=== PATIENT | female | born 1960 | race Caucasian/White ===

== ENCOUNTER → 2016-11-04 | Outpatient (CLI) | payer BC ==
[2016-11-04 10:47] LABS: Appearance,Urine Clear (Clear); Bilirubin,Urine Negative (Negative); Glucose,Urine (UA) Negative (Negative); Ketones,Urine Negative (Negative); Leukocyte Esterase,Urine Negative (Negative); Nitrite,Urine Negative (Negative); Protein,Urine Negative (Negative); Specific Gravity,Urine 1.004 (1.001-1.035); UA Billing (MACRO vs. MICRO) CHEM; Urobilinogen,Urine <2.0 mg/dL (<2.0)
--- NOTE | 2016-11-04 11:51 | WWPN ---
DATE OF ADMISSION: 11/04/2016 CHIEF COMPLAINT: Urinary symptoms for about one month. HPI: This is a 56-year-old G4, P3-0-1-3 with an LMP of 2000 who is status post COREY and possible BSO years ago for benign reasons. The patient has been experiencing some urinary urgency, dysuria and pelvic pressure for about the last month. She states she was treated for a UTI on 08/04/2016 and took Macrobid. She states the symptoms did improve, but she never got the feeling that the symptoms were completely gone. A couple of weeks ago, the symptoms seem to get worse. This was noticed after intercourse. She states when she does have intercourse, she does tend to have urinary urgency and pressure. This sometimes does improve, but other times does not improve. Currently, she is having these urinary symptoms. She can also have discomfort with intercourse and this can include dryness but sometimes it does feel just very uncomfortable in her pelvis. She has also been having some upper abdominal discomfort that feels kind of like a squeezing-type of sensation. She has had some constipation as well. She denies fever or vaginal discharge. REVIEW OF SYSTEMS: She states she has not been feeling well lately and she has been experiencing problems with a head cold. She has also been under lots of stress. She denies respiratory problems. GI: She has had some constipation and also some problems with her hemorrhoids. PHYSICAL EXAM: Blood pressure 116/80. Height 4 feet 11 inches, weight 172 pounds. Temperature 98.2, pulse 75. This is a well-developed, well-nourished white female who is alert and oriented x3 in no acute distress. CHEST AND LUNGS: Clear to auscultation. HEART: Regular rate and rhythm. ABDOMEN: 1+ bowel sounds. The abdomen is soft. There is minimal epigastric tenderness without rebound tenderness. There are no palpable abdominal masses. The rest of the abdomen is nontender. PELVIC EXAM: Normal external genitalia. BIMANUAL EXAM: The vagina is well supported with no evidence of prolapse. There is mild tenderness in the area of the bladder with bimanual examination. There are no palpable pelvic masses or tenderness in the adnexal regions. IMPRESSION: 1. A 56-year-old menopausal female, status post total abdominal hysterectomy with probable cystitis, with symptoms consisting of urinary urgency, pelvic pressure and dysuria. Her symptoms seem to be worse after intercourse. 2. Epigastric abdominal discomfort. 3. Dyspareunia, possibly secondary to cystitis. PLAN: 1. UA and C&S will be obtained with a clean-catch midstream specimen. 2. The patient will be empirically treated with Macrobid b.i.d. x7 days since she states she has done better with Macrobid for UTI symptoms compared to other antibiotics. 3. The patient will be given a prescription for Diflucan 150 mg which she can take q.48 hours x2 if she develops yeast infection symptoms since she states she frequently does get yeast infections after any type of antibiotic. 4. She was instructed to call if her urinary symptoms do not improve and we can refer to the urine culture to see if antibiotic change would be needed. 5. She states she will be seeing Dr. Leal in the near future regarding other symptoms, including her upper abdominal pains. 6. She will be due for her annual examination in approximately 2 months. Total time spent with the patient 25 minutes.
== END | disposition home or self-care (01) ==
LOC: WWCWWP 09:21
PROVIDERS: ATTEND Obstetrics & Gynecology
DX: R39.15 Urgency of urination (principal)
CPT/HCPCS: 81003; 87086

== ENCOUNTER → 2016-12-29 | Outpatient (CLI) | payer BC ==
--- NOTE | 2016-12-29 17:32 | WWHP ---
DATE OF SERVICE: 12/29/2016 CHIEF COMPLAINT: The patient is here for her routine gynecologic exam. HPI: This is a 56-year-old G4, P3-0-1-3 with an LMP of 1999. She is status post COREY/BSO for benign reasons. She was treated for possible urinary tract infection about one and one half months ago. She states her urinary symptoms did resolve. We were going to have a trial of estrogen vaginal cream to see if this helps with her urinary symptoms but she decided not to use this and states her urinary symptoms have resolved. PAST MEDICAL HISTORY: Fibromyalgia, Meniere's disease, lichens planus of the mouth. MEDICATIONS: 1. Ambien 5 mg q.h.s. p.r.n. 2. Plaquenil generic 200 mg b.i.d. 3. Transdermal estrogen cream prescribed by her herbalist Dr. Rodriguez. 4. Xanax p.r.n. 5. She also takes multiple vitamins and nutritional supplements including vitamin D supplement. ALLERGIES: No known drug allergies. Past surgical, SILICA [employer], and family histories are unchanged from the 2016 H&P. SOCIAL HISTORY: She denies tobacco and drug use and has about 4 alcoholic drinks per month. She has been since 1979 and works at [email or web address] in [place]. REVIEW OF SYSTEMS: She has gained about 6 pounds over the last year. She denies respiratory or cardiac problems. GI: Occasional stomach pains, which she thinks may be related to stress. PHYSICAL EXAM: Blood pressure 105/61. Height 4 feet 11 inches, weight 174 pounds. Temperature 98.4, pulse 74. This is a well-developed, well-nourished white female who is alert and oriented x3 in no acute distress. HEENT is within normal limits. NECK: Supple without mass or thyromegaly. CHEST AND LUNGS: Clear to auscultation. HEART: Regular rate and rhythm. Breasts are without mass or discharge. Axillary exam is negative for adenopathy. BACK: Negative for CVA tenderness. ABDOMEN: Mildly obese, soft, nontender, without palpable masses. PELVIC EXAM: External genitalia reveals mild atrophy without lesions. Vagina reveals mild atrophy without lesions. There is no evidence of prolapse. Bimanual exam is negative for mass or tenderness. Rectovaginal exam is negative for mass or tenderness and is negative for occult blood. EXTREMITIES: Nontender. IMPRESSION: A 56-year-old menopausal female, status post total abdominal hysterectomy/ bilateral salpingo-oophorectomy for benign reasons with unremarkable gynecologic exam. PLAN: 1. Pap smears have been discontinued. 2. Self-breast examination was discussed. 3. Bilateral mammogram was recently done on 10/02/2016 and ultrasound of the right breast was recommended in 6 months. An order slip was given to patient for this. 4. Osteoporosis prevention was discussed. We will plan on repeat repeating bone density testing in about one year. 5. She will return in one year.
== END | disposition home or self-care (01) ==
LOC: WWCWWP 08:00
PROVIDERS: ATTEND Obstetrics & Gynecology

== ENCOUNTER → 2017-04-05 | Outpatient (CLI) | payer BC ==
--- NOTE | 2017-04-07 09:55 | USB ---
Reason for exam: follow-up at short interval from prior study. History: Patient is postmenopausal. Benign US breast aspiration single RT of the right breast, September 09, 2015. Took estrogen for 6 years beginning at age 49. Took progesterone for 6 years beginning at age 49. Physical Findings: Nurse Summary: all soft, nodular, movable, right upper outer quadrant prominent nodular tissue (nurse ts). US Breast RT Right breast ultrasound includes all four quadrants, the retroareolar region and axilla. Finding demonstrates a 0.4 x 0.4 x 0.3cm oval, cystic, benign lesion at 9 o'clock, a 0.7 x 0.6 x 0.2cm oval, mixed lesion at 10 o'clock not seen previously for which a 6 month follow up is recommended, a 1.1 x 1.1 x 0.4cm oval, cystic, benign lesion at 10 o'clock and a couple more cysts not measured at 10 o'clock. These results were verbally communicated with the patient and result sheet given to the patient on 04/05/17. ASSESSMENT: Probably benign, BI-RAD 3 RECOMMENDATION: Follow-up diagnostic mammogram of both breasts in 6 months. Back on schedule for September 2017. Ultrasound of the right breast in 6 months. (10 o'clock, zone A, mixed lesions) [facility]
== END | disposition home or self-care (01) ==
LOC: RADUSWWP 09:03
PROVIDERS: ATTEND Obstetrics & Gynecology
DX: R92.8 Other abnormal and inconclusive findings on diagnostic imaging of breast (principal)

== ENCOUNTER → 2017-04-30 | Outpatient (CLI) | payer BC ==
[2017-04-30 12:39] LABS: Basophils # (A) 0.1 k/uL (0-0.2); Basophils % (A) 1 %; CHCM 32.9; Eosinophils # (A) 0.2 k/uL (0-0.7); Eosinophils % (A) 3 %; HCT 42.2 % (34.0-46.0); HDW 2.39; HGB 14.1 gm/dL (11.4-16.0); Luc # (Auto) 0.19; Luc % (Auto) 2; Lymphocytes # (A) 1.7 k/uL (1.0-4.8); Lymphocytes % (A) 21 %; MCH 30.6 pg (25.0-35.0); MCHC 33.4 g/dL (31.0-37.0); MCV 91.6 fL (80.0-100.0); Mean Platelet Volume 7.1; Monocytes # (A) 0.4 k/uL (0-1.0); Monocytes % (A) 5 %; Neutrophils # (A) 5.6 k/uL (1.3-7.7); Neutrophils % (A) 68 %; RBC 4.61 m/uL (3.80-5.40); RDW 12.6 % (11.5-15.5); WBC 8.2 k/uL (3.8-10.6); WBC (Perox) 8.22
[2017-04-30 13:16] LABS: ALT 33 U/L (9-52); AST 24 U/L (14-36); Alkaline Phosphatase 60 U/L (38-126); Anion Gap 9 mmol/L; Blood Urea Nitrogen 13 mg/dL (7-17); Calcium 9.7 mg/dL (8.4-10.2); Carbon Dioxide 28 mmol/L (22-30); Chloride 105 mmol/L (98-107); Glucose 78 mg/dL (74-99); Magnesium 2.1 mg/dL (1.6-2.3); Non-African American GFR(MDRD) >60 (>60 ml/min/1.73 sqM); Phosphorous 3.6 mg/dL (2.5-4.5); Potassium 4.7 mmol/L (3.5-5.1); Sodium 142 mmol/L (137-145); Total Bilirubin 0.4 mg/dL (0.2-1.3); Total Protein 6.5 g/dL (6.3-8.2)
== END | disposition home or self-care (01) ==
LOC: LABWHC1 11:58
PROVIDERS: ATTEND Internal Medicine Infectious Disease
DX: L43.9 Lichen planus, unspecified (principal)
CPT/HCPCS: 36415; 80053; 83735; 84100; 85025

== ENCOUNTER → 2017-10-11 | Outpatient (CLI) | payer BC ==
--- NOTE | 2017-10-11 12:15 | MM ---
Reason for exam: additional evaluation requested from prior study. Last mammogram was performed 1 year ago. History: Patient is postmenopausal. Benign US breast aspiration single RT of the right breast, September 09, 2015. Took estrogen for 6 years beginning at age 49. Took progesterone for 6 years beginning at age 49. Physical Findings: Nurse did not find any significant physical abnormalities on exam. MG 3D Diag Mammo W/Cad SWATHI Bilateral CC and MLO view(s) were taken. Prior study comparison: October 02, 2016, bilateral MG 3d diag mammo w/cad SWATHI. April 01, 2016, bilateral MG 3d diag mammo w/cad SWATHI. There are scattered fibroglandular densities. There are benign appearing stable right breast masses corresponding to sonographic cysts. Additionally there is a new 3mm mass in the lower inner quadrant of the left breast at posterior depth. These results were verbally communicated with the patient and result sheet given to the patient on 10/11/17. ASSESSMENT: Incomplete: need additional imaging evaluation, BI-RAD 0 RECOMMENDATION: Ultrasound of the left breast.
--- NOTE | 2017-10-11 12:19 | USB ---
Reason for exam: additional evaluation requested from abnormal screening. History: Patient is postmenopausal. Benign US breast aspiration single RT of the right breast, September 09, 2015. Took estrogen for 6 years beginning at age 49. Took progesterone for 6 years beginning at age 49. US Breast Limited BILAT Right breast ultrasound includes all four quadrants, the retroareolar region and axilla. Finding demonstrates a 0.4 x 0.3 x 0.3cm cystic lesion at 9 o'clock, a 0.6 x 0.3 x 0.6cm mixed lesion at 10 o'clock on the prior exam this appeared cystic entirely and maintains the same morphology, likely a collapsing +/- complicated cyst and a 1.4 x 0.5 x 1.1cm cystic lesion at 10 o'clock. Similar to the prior. Left breast ultrasound demonstrates a 0.5 x 0.3 x 0.4cm mixed lesion at 6 o'clock, corresponds to the mammographic finding. These results were verbally communicated with the patient and result sheet given to the patient on 10/11/17. ASSESSMENT: Probably benign, BI-RAD 3 RECOMMENDATION: Ultrasound of the left breast in 6 months.
== END | disposition home or self-care (01) ==
LOC: RADMAMWWP 08:45
PROVIDERS: ATTEND Obstetrics & Gynecology
DX: R92.8 Other abnormal and inconclusive findings on diagnostic imaging of breast (principal)
CPT/HCPCS: 77066; 76642; G0279

== ENCOUNTER → 2018-04-12 | Outpatient (CLI) | payer BC ==
--- NOTE | 2018-04-13 09:12 | USB ---
Reason for exam: follow-up at short interval from prior study. History: Patient is postmenopausal. Benign US breast aspiration single RT of the right breast, September 09, 2015. Took estrogen for 6 years beginning at age 49. Took progesterone for 6 years beginning at age 49. Physical Findings: Nurse Summary: tender with palpation at 9 o'clock (nurse cw). US Breast LT Left complete breast ultrasound includes all four quadrants, the retroareolar region and axilla. Finding demonstrates a 0.3 x 0.3 x 0.2cm oval, cystic cluster at 12 o'clock, a 0.4 x 0.3 x 0.3cm oval, cystic lesion at 3 o'clock, a 0.4 x 0.3 x 0.3cm oval, mixed, clustered lesion at 6 o'clock and a 0.5 x 0.7 x 0.4cm oval, cystic, complex, clustered lesion at 11 o'clock. These results were verbally communicated with the patient and result sheet given to the patient on 04/12/18. ASSESSMENT: Probably benign, BI-RAD 3 RECOMMENDATION: Follow-up diagnostic mammogram of both breasts in 6 months. Ultrasound of the left breast in 6 months.
== END | disposition home or self-care (01) ==
LOC: RADUSWWP 15:25
PROVIDERS: ATTEND Obstetrics & Gynecology
DX: R92.8 Other abnormal and inconclusive findings on diagnostic imaging of breast (principal)

== ENCOUNTER → 2018-05-30 | Outpatient (CLI) | payer BC ==
--- NOTE | 2018-05-30 14:43 | BD ---
EXAMINATION TYPE: Axial Bone Density DATE OF EXAM: 05/30/2018 COMPARISON: NONE CLINICAL HISTORY: post menopausal Height: 4'11 1/2 Weight: 175 FRAX RISK QUESTIONS: Secondary Osteoporosis: 3. Menopause before 45: y RISK FACTORS HISTORY OF: Family History of Osteoporosis: y Diet low in dairy products/other sources of calcium: y Postmenopausal woman: y Take estrogen and/or progesterone medications: y How lon years MEDICATIONS: Additional Medications: ambien,xanax, dizzy Additional History: EXAM MEASUREMENTS: Bone mineral densitometry was performed using the [employer] System. Bone mineral density as measured about the Lumbar spine is: ----- L1-L4(G/cm2): 1.320 T Score Values are as follows: ----- L2: 1.2 ----- L3: 1.8 ----- L4: 0.7 ----- L1-L4:1.2 Bone mineral density about the R hip (g/cm2): 0.898 Bone mineral density about the L hip (g/cm2): 0.897 T Score values are as follows: -----R Neck: -1.0 -----L Neck: -1.0 -----R Total: 0.3 -----L Total: 0.3 IMPRESSION: No evidence for osteoporosis or osteopenia. NOTE: T-SCORE=SD OF THE YOUNG ADULT MEAN.
--- NOTE | 2018-05-31 15:00 | P.PN ---
Progress Note - Text Progress Note Date: 05/31/18 OUTPATIENT FOLLOW-UP NOTE TEST(S)/RESULTS: bone density from 05/30/2018 was normal. METHOD OF NOTIFICATION: the patient's was notified by phone and he will relay the message to his . PATIENT COMMENTS: [] DIAGNOSIS: normal bone density test DISCUSSION: the patient has her annual appointment with me on 06/15/2018. PLAN: annual exam on 06/15/2018. We will again discuss osteoporosis prevention. Will plan and repeating bone density testing in the year 2022.
== END | disposition home or self-care (01) ==
LOC: RADBDWWP 07:54
PROVIDERS: ATTEND Obstetrics & Gynecology
DX: Z13.820 Encounter for screening for osteoporosis (principal); Z78.0 Asymptomatic menopausal state
CPT/HCPCS: 77080

== ENCOUNTER → 2018-07-13 | Outpatient (CLI) | payer BC ==
[2018-07-13 11:31] VITALS: BP 128/74; PULSE 74; TEMP 98.1; BMI 35.5
--- NOTE | 2018-07-13 12:00 | P.HPOB ---
History of Present Illness H&P Date: 07/13/18 Chief Complaint: The patient is here for her routine gynecologic exam. This is a 58-year-old within LMP of 1999. The patient is without gynecologic complaints. Her last bilateral mammograms on 10/11/2017 required bilateral workup and 6 month left breast ultrasound was recommended. This was done on 04/12/2018 and was probably benign. Bilateral diagnostic mammogram was recommended in 6 months. Review of Systems The patient's weight has been stable over the last year. She denies respiratory , cardiac, or G.I. problems. Past Medical History Past Medical History: Fibromyalgia Additional Past Medical History / Comment(s): lichens planus of the mouth, arthritis, Mnire's disease. 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 History of Any Multi-Drug Resistant Organisms: None Reported Past Surgical History: Breast Surgery (Right biopsy 2014), Section (x3) , Cholecystectomy, Hysterectomy (COREY BSO in 1999), Orthopedic Surgery Past Psychological History: No Psychological Hx Reported Smoking Status: Never smoker Past Alcohol Use History: Occasional (2 per month) Past Drug Use History: None Reported Additional History: She has been since 1979 and works at [employer] in [place]. - Past Family History Father Family Medical History: Myocardial Infarction ([place]) Mother Family Medical History: COPD Sister(s) Family Medical History: Hypertension Daughter(s) Family Medical History: Diabetes Mellitus Medications and Allergies Home Medications Medication Instructions Recorded Confirmed Type Cyclobenzaprine [Flexeril] 10 mg PO HS #30 tablet 11/20/16 07/13/18 Rx ALPRAZolam [Xanax] PO DAILY 07/13/18 History Zolpidem [Ambien] PO PRN 07/13/18 History Allergies Allergy/AdvReac Type Severity Reaction Status Date / Time No Known Allergies Allergy Unverified 07/13/18 11:22 Exam Vital Signs Temp Pulse BP 07/13/18 11:24 98.1 F 74 128/74 Intake and Output 07/12/18 07/13/18 07/13/18 22:59 06:59 14:59 Other: Weight 79.832 kg Height 4'11", BMI 35.5. This is a well-developed well-nourished white female who is alert and oriented times 3 in no acute distress. HEENT: Within normal limits. NECK: Supple without mass or thyromegaly. CHEST AND LUNGS: Clear to auscultation. HEART: Regular rate and rhythm. BREASTS: Are without mass or discharge. AXILLARY EXAM: Negative for adenopathy. BACK: Negative for CVA tenderness. ABDOMEN: Soft, nontender, without palpable masses. PELVIC EXAM: External genitalia appears normal with mild atrophy. Vagina appears normal mild atrophy. There is no evidence of prolapse. Bimanual examination is negative for mass or tenderness. RECTAL EXAM: Rectovaginal exam is negative for mass or tenderness and is negative for occult blood. EXTREMITIES: Nontender. IMPRESSION: 1. 58-year-old menopausal female status post COREY BSO for benign reasons with normal gynecologic exam. PLAN: 1. Pap smears have been discontinued. 2. Self breast awareness was discussed with the patient. 3. Bilateral diagnostic mammogram will be due in October 2018. The order slip was given to the patient for this. 4. Osteoporosis prevention was discussed. She had a normal bone density test on 05/30/2018. This will be repeated in 2022. 5. She will return in one year.
== END ==
LOC: WWCWWP 10:53
PROVIDERS: ATTEND Obstetrics & Gynecology
DX: Z53.9 Procedure and treatment not carried out, unspecified reason (principal)

== ENCOUNTER → 2018-10-28 | Outpatient (CLI) | payer BC ==
--- NOTE | 2018-10-30 11:54 | MM ---
Reason for exam: follow-up at short interval from prior study. Last mammogram was performed 1 year and 1 month ago. History: Patient is postmenopausal. Benign US breast aspiration single RT of the right breast, September 09, 2015. Taking estrogen for 6 years beginning at age 49. Taking progesterone for 6 years beginning at age 49. Physical Findings: Nurse did not find any significant physical abnormalities on exam. MG 3D Diag Mammo W/Cad SWATHI Bilateral CC and MLO view(s) were taken. Prior study comparison: October 11, 2017, bilateral MG 3d diag mammo w/cad SWATHI. October 02, 2016, bilateral MG 3d diag mammo w/cad SWATHI. The breast tissue is heterogeneously dense. This may lower the sensitivity of mammography. No suspicious calcifications. There is bilateral chronic nodularity. ASSESSMENT: Incomplete: need additional imaging evaluation, BI-RAD 0 RECOMMENDATION: Ultrasound of the left breast.
--- NOTE | 2018-10-30 11:58 | USB ---
Reason for exam: additional evaluation requested from prior study. History: Patient is postmenopausal. Benign US breast aspiration single RT of the right breast, September 09, 2015. Taking estrogen for 6 years beginning at age 49. Taking progesterone for 6 years beginning at age 49. US Breast LT Left complete breast ultrasound includes all four quadrants, the retroareolar region and axilla. Finding demonstrates a 0.3 x 0.3 x 0.2 cm cystic lesion at 3 o'clock, a 0.3 x 0.2 x 0.3 cm cystic lesion at 6 o'clock and a 0.3 x 0.3 x 0.3 cm cystic lesion at 11 o'clock. These results were verbally communicated with the patient and result sheet given to the patient on 10/28/18. ASSESSMENT: Benign, BI-RAD 2 RECOMMENDATION: Routine screening mammogram of both breasts in 1 year.
== END ==
LOC: RADMAMWWP 09:43
PROVIDERS: ATTEND Obstetrics & Gynecology
DX: R92.8 Other abnormal and inconclusive findings on diagnostic imaging of breast (principal)
CPT/HCPCS: 77062; 77066

== ENCOUNTER → 2019-04-17 | Outpatient (CLI) | payer BC ==
--- NOTE | 2019-04-17 10:46 | US ---
EXAMINATION TYPE: US liver DATE OF EXAM: 04/17/2019 COMPARISON: NONE CLINICAL HISTORY: K76.0 FATTY LIVER. Fatty liver EXAM MEASUREMENTS: Liver Length: 12 cm Gallbladder Wall: Surgically absent cm CBD: 0.5 cm Right Kidney: 9.4 x 3.5 x 3.5 cm Pancreas: Obscured by bowel gas Liver: Increased attenuation Gallbladder: Surgically absent Evidence for sonographic Woo's sign: No CBD: wnl Right Kidney: wnl IMPRESSION: 1. Increased attenuation to the liver is nonspecific and be seen with hepatic steatosis, hepatitis, o r diffuse hepatocellular disease. 2. Postcholecystectomy.
== END | disposition home or self-care (01) ==
LOC: RADUSWWP 09:46
PROVIDERS: ATTEND Internal Medicine
DX: K76.0 Fatty (change of) liver, not elsewhere classified (principal); Z90.49 Acquired absence of other specified parts of digestive tract
CPT/HCPCS: 76705

== ENCOUNTER 2019-05-10 10:53 | Day surgery (SDC) | payer BC ==
[2019-05-08 12:22] VITALS: BMI 36.3
[~2019-05-10 10:53] MED LIST: LACTATED RINGERS 1,000 ML IV SCH; LIDOCAINE 1% 20 ML VIAL (10MG/ML) FOR IV START INTRADERMA PRN
[2019-05-10 11:16] VITALS: RESP 16; TEMP 98.6
[2019-05-10] MEDS ORDERED: PROPOFOL 10 MG/ML 20 ML VIAL IV ONE (11:57)
[2019-05-10] MEDS ORDERED: LIDOCAINE 1% INJ 10MG/ML (20 ML MDV) ONE (11:57)
--- NOTE | 2019-05-10 12:14 | P.PCN ---
Date of Procedure: 05/10/19 Procedure(s) Performed: BRIEF HISTORY: Patient is a 58-year-old, pleasant, white female, scheduled for an upper endoscopy as a part of evaluation of reflux and history of GERD. She is maintained on Nexium 20 mg daily and has occasional heartburn. She is scheduled for an upper endoscopy to rule out complicated reflux disease.. PROCEDURE PERFORMED: Esophagogastroduodenoscopy with biopsy. PREOPERATIVE DIAGNOSIS: GERD. IV sedation per anesthesia. PROCEDURE: After informed consent was obtained, the patient was brought into the endoscopy unit. IV sedation was administered by Anesthesia under continuous monitoring. Initially the Olympus GIF-140 video endoscope was inserted into the mouth. Esophagus intubated without any difficulty. It was gradually advanced into the stomach and duodenum and carefully examined. The bulb and the second part of the duodenum appeared normal. The scope at this time was withdrawn to the stomach, adequately insufflated with air, and upon careful examination, mucosa of the antrum had mild gastritis and biopsies were done from this area. body, cardia and the fundus appeared normal. The scope was then withdrawn into the esophagus. Small sliding Hiatal hernia noted. The GE junction was located at 36 cm from the incisors. The esophagus appeared normal. There were no erosions or ulcerations seen and the patient tolerated the procedure well. IMPRESSION: 1. Mild antral gastritis. 2. Small sliding Hiatal hernia but no evidence of esophagitis or Willoughby's esophagus. RECOMMENDATIONS: The findings of this examination were discussed with the patient as well as her family. She was advised to follow with the biopsy results. She will continue with Nexium 20 mg daily and follow antireflux measures..
[2019-05-10 12:29] VITALS: BP 123/80; PULSE 64
== END 2019-05-10 12:58 | disposition home or self-care (01) ==
LOC: ORWHC2ENDO 10:53
PROVIDERS: ATTEND Internal Medicine Gastroenterology
DX: K29.50 Unspecified chronic gastritis without bleeding (principal); K21.9 Gastro-esophageal reflux disease without esophagitis; K44.9 Diaphragmatic hernia without obstruction or gangrene; Z79.899 Other long term (current) drug therapy; E07.9 Disorder of thyroid, unspecified; M79.7 Fibromyalgia; H81.09 Meniere's disease, unspecified ear; Z90.710 Acquired absence of both cervix and uterus; I34.0 Nonrheumatic mitral (valve) insufficiency; Z79.891 Long term (current) use of opiate analgesic
CPT/HCPCS: 88305; 43239; J2001; J2704

== ENCOUNTER → 2019-11-14 | Outpatient (CLI) | payer BC ==
[2019-11-14 09:37] VITALS: BP 119/80; PULSE 68; RESP 18; TEMP 98.7
--- NOTE | 2019-11-14 10:09 | P.HPOB ---
History of Present Illness H&P Date: 11/14/19 Chief Complaint: The patient is here for her routine gynecologic exam and ma mmogram. This is a 59-year-old 013 with an LMP of 1999. She is status post COREY/BSO for benign reasons. The patient is without gynecologic complaints. Review of Systems The patient has lost 4 pounds over the last year. She denies respiratory, cardiac, or G.I. problems. 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 History of Any Multi-Drug Resistant Organisms: None Reported Past Surgical History: Breast Surgery, Section, Cholecystectomy, Hysterectomy, Orthopedic Surgery Additional Past Surgical History / Comment(s): COREY/BSO in 1999. section 3. CYSTECTOMY FROM BREAST -NOT SURE WHICH SIDE, BILAT KNEE SCOPES, C OLONOSCOPY 2015(next after 10yr). Past Anesthesia/Blood Transfusion Reactions: No Reported Reaction Past Psychological History: No Psychological Hx Reported Smoking Status: Never smoker Past Alcohol Use History: Rare Past Drug Use History: None Reported Additional History: She has been since 1979 and works at [employer] in [place]. - Past Family History Father Family Medical History: Myocardial Infarction ([place]) Mother Family Medical History: COPD Sister(s) Family Medical History: Hypertension Daughter(s) Family Medical History: Diabetes Mellitus Medications and Allergies Home Medications Medication Instructions Recorded Confirmed Type ALPRAZolam [Xanax] 0.5 mg PO DAILY PRN 07/13/18 11/14/19 History Zolpidem [Ambien] 10 mg PO HS 07/13/18 11/14/19 History Cranberry Fruit Extract [Cranberry] 200 mg PO DAILY 05/08/19 11/14/19 History Esomeprazole Magnesium [NexIUM] 20 mg PO DAILY 05/08/19 11/14/19 History Garlic 1 each PO DAILY 05/08/19 11/14/19 History HYDROcodone/APAP 5-325MG [[place] 1 tab PO Q6HR PRN 05/08/19 11/14/19 History 5-325] Hydroxychloroquine Sulfate 200 mg PO DAILY 05/08/19 11/14/19 History [Plaquenil] [place]-3 Fatty Acids/Fish Oil [Fish 1 each PO DAILY 05/08/19 11/14/19 History Oil 1,000 mg Softgel] Potassium Gluconate 99 mg PO DAILY 05/08/19 11/14/19 History Prasterone (Dhea) [Dhea] 50 mg PO DAILY 05/08/19 11/14/19 History Thyroid,Pork [Nature-Throid] 32.5 mg PO DAILY 05/08/19 11/14/19 History Vitamin B Complex 1 each PO DAILY 05/08/19 11/14/19 History Allergies Allergy/AdvReac Type Severity Reaction Status Date / Time No Known Allergies Allergy Unverified 11/14/19 09:45 Exam Vital Signs Temp Pulse Resp BP Pulse Ox 11/14/19 09:32 98.7 F 68 18 119/80 96 Intake and Output 11/13/19 11/14/19 11/14/19 22:59 06:59 14:59 Other: Weight 78.018 kg Height 4 feet 11 inches, weight 172 pounds, BMI 34.7. This is a well-developed well-nourished heavyset white female who is alert and oriented times 3 in no acute distress. HEENT: Within normal limits. NECK: Supple without mass or thyromegaly. CHEST AND LUNGS: Clear to auscultation. HEART: Regular rate and rhythm. BREASTS: Are without mass or discharge. There is mild erythema intertrigo in the crease beneath the left breast. AXILLARY EXAM: Negative for adenopathy. BACK: Negative for CVA tenderness. ABDOMEN: Soft, nontender, without palpable masses. PELVIC EXAM: External genitalia appears normal with mild atrophy. Vagina appears normal with mild atrophy. There is no evidence of prolapse. Bimanual examination is negative for mass or tenderness. RECTAL EXAM: Rectovaginal exam is negative for mass or tenderness and is negative for occult blood. EXTREMITIES: Nontender. IMPRESSION: 1. 59-year-old menopausal female status post COREY/BSO for benign reasons with normal gynecologic exam. 2. Mild erythema intertrigo in the crease of the left breast. PLAN: 1. Pap smears have been discontinued. 2. Self breast awareness was discussed with the patient. 3. Screening mammogram will be done today. 4. Osteoporosis prevention was reviewed. She still has the sheet from last yea r on this. 5. She was advised to return in one year for her annual well woman exam. 6. I have advised her to use an [id number] antifungal cream such as an athletes foot under the past as directed. She'll try to keep the area clean and dry.
--- NOTE | 2019-11-15 10:51 | MM ---
Reason for exam: screening (asymptomatic). Last mammogram was performed 1 year and 1 month ago. History: Patient is postmenopausal. Benign US breast aspiration single RT of the right breast, September 09, 2015. Taking estrogen for 6 years beginning at age 49. Taking progesterone for 6 years beginning at age 49. Physical Findings: A clinical breast exam by your physician is recommended on an annual basis and results should be correlated with mammographic findings. MG 3D Screening Mammo W/Cad Bilateral CC and MLO view(s) were taken. Prior study comparison: October 28, 2018, bilateral MG 3d diag mammo w/cad [facility]. October 11, 2017, bilateral MG 3d diag mammo w/cad [facility]. There are scattered fibroglandular densities. There are benign appearing round oval circumscribed stable bilateral masses compared to priors. No suspicious abnormality. Right upper outer quadrant biopsy marker adjacent to the most dominant right mass. No significant changes when compared with prior studies. ASSESSMENT: Benign, BI-RAD 2 RECOMMENDATION: Routine screening mammogram of both breasts in 1 year.
== END | disposition home or self-care (01) ==
LOC: WWCWWP 09:15
PROVIDERS: ATTEND Obstetrics & Gynecology
DX: Z12.31 Encounter for screening mammogram for malignant neoplasm of breast (principal)
CPT/HCPCS: 77063; 77067

== ENCOUNTER → 2021-02-04 | Outpatient (CLI) | payer BC ==
[2021-02-04 16:07] VITALS: BP 134/85; PULSE 66; RESP 18; TEMP 97.8
--- NOTE | 2021-02-04 17:00 | P.HPOB ---
History of Present Illness H&P Date: 02/04/21 Chief Complaint: The patient is here for her routine gynecologic exam and ma mmogram. This is a 60-year-old with an LMP of 1999. The patient is status post COREY/BSO for benign reasons the patient thinks she may have the start of a urinary tract infection. She had urinary frequency and urgency along with slight dysuria yesterday. The symptoms seem somewhat improved today. She is otherwise without complaints. Review of Systems She has been about 3 pounds over the past year. She denies respiratory or cardiac problems. GI: Occasional discomfort with hemorrhoids. : As in the HPI. 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 History of Any Multi-Drug Resistant Organisms: None Reported Past Surgical History: Breast Surgery, Section, Cholecystectomy, Hysterectomy, Orthopedic Surgery Additional Past Surgical History / Comment(s): COREY/BSO in 1999. section 3. CYSTECTOMY FROM BREAST -NOT SURE WHICH SIDE, BILAT KNEE SCOPES, COLONOSCOPY 2015(next after 10yr). Past Anesthesia/Blood Transfusion Reactions: No Reported Reaction Past Psychological History: No Psychological Hx Reported Smoking Status: Never smoker Past Alcohol Use History: Rare (2 per year) Past Drug Use History: None Reported Additional History: She has been since 1979 and is sexually active. She works at [employer] in [place]. She is expecting her third grandchild. - Past Family History Father Family Medical History: Myocardial Infarction ([place]) Mother Family Medical History: COPD Sister(s) Family Medical History: Hypertension Daughter(s) Family Medical History: Diabetes Mellitus Medications and Allergies Home Medications Medication Instructions Recorded Confirmed Type ALPRAZolam [Xanax] 0.5 mg PO DAILY PRN 07/13/18 02/04/21 History Zolpidem [Ambien] 10 mg PO HS 07/13/18 02/04/21 History Cranberry Fruit Extract [Cranberry] 200 mg PO DAILY 05/08/19 02/04/21 History Esomeprazole Magnesium [NexIUM] 20 mg PO DAILY 05/08/19 02/04/21 History Garlic 1 each PO DAILY 05/08/19 02/04/21 History HYDROcodone/APAP 5-325MG [[place] 1 tab PO Q6HR PRN 05/08/19 02/04/21 History 5-325] Hydroxychloroquine Sulfate 200 mg PO DAILY 05/08/19 02/04/21 History [Plaquenil] [place]-3 Fatty Acids/Fish Oil [Fish 1 each PO DAILY 05/08/19 02/04/21 History Oil 1,000 mg Softgel] Potassium Gluconate 99 mg PO DAILY 05/08/19 02/04/21 History Prasterone (Dhea) [Dhea] 50 mg PO DAILY 05/08/19 02/04/21 History Thyroid,Pork [Nature-Throid] 32.5 mg PO DAILY 05/08/19 02/04/21 History Vitamin B Complex 1 each PO DAILY 05/08/19 02/04/21 History Allergies Allergy/AdvReac Type Severity Reaction Status Date / Time No Known Allergies Allergy Unverified 02/04/21 15:39 Exam Vital Signs Temp Pulse Resp BP Pulse Ox 02/04/21 15:41 97.8 F 66 18 134/85 98 Intake and Output 02/04/21 02/04/21 02/04/21 06:59 14:59 22:59 Other: Weight 79.379 kg Height 4 feet 11 inches, weight 175 pounds, BMI 35.3. This is a well-developed well-nourished white female who is alert and oriented times 3 in no acute distress. HEENT: Within normal limits. NECK: Supple without mass or thyromegaly. CHEST AND LUNGS: Clear to auscultation. HEART: Regular rate and rhythm. BREASTS: Are without mass or discharge. AXILLARY EXAM: Negative for adenopathy. BACK: Negative for CVA tenderness. ABDOMEN: Soft, nontender, without palpable masses. PELVIC EXAM: External genitalia appears normal with mild atrophy. Vagina appears normal mild atrophy. There is no evidence of prolapse. Bimanual examination is negative for mass or tenderness. RECTAL EXAM: Rectovaginal exam is negative for mass or tenderness and is negative for occult blood. EXTREMITIES: Nontender. IMPRESSION: 1. 60-year-old menopausal female status post COREY/BSO for benign reasons with normal gynecologic exam. 2. Urinary symptoms including dysuria, urinary urgency, and urinary frequency which started yesterday and has improved somewhat today. PLAN: 1. Pap smears have been discontinued. 2. Self breast awareness was discussed with the patient. 3. Screening mammogram was done today. 4. Clean catch midstream urine has been sent for urinalysis and culture with sensitivity 5. Osteoporosis prevention was discussed. I have stressed the importance of adequate calcium, vitamin D and regular exercise. Recommended amounts of calcium and vitamin D were also discussed. Bone density test will be due in 2022. 6. She was advised to return in one year for her annual well woman exam.
[2021-02-04 17:33] LABS: Appearance,Urine Clear (Clear); Bilirubin,Urine Negative (Negative); Blood,Urine Negative (Negative); Color,Urine Yellow; Glucose,Urine (UA) Negative (Negative); Ketones,Urine Negative (Negative); Leukocyte Esterase,Urine Negative (Negative); Nitrite,Urine Negative (Negative); PH, Urine 6.5 (5.0-8.0); Protein,Urine Negative (Negative); Urobilinogen,Urine <2.0 mg/dL (<2.0)
--- NOTE | 2021-02-05 10:53 | MM ---
Reason for exam: screening (asymptomatic). Last mammogram was performed 1 year and 3 months ago. History: Patient is postmenopausal. Benign US breast aspiration single RT of the right breast, September 09, 2015. Took estrogen for 6 years beginning at age 49. Took progesterone for 6 years beginning at age 49. Physical Findings: A clinical breast exam by your physician is recommended on an annual basis and results should be correlated with mammographic findings. MG 3D Screening Mammo W/Cad Bilateral CC and MLO view(s) were taken. Prior study comparison: November 14, 2019, bilateral MG 3d screening mammo w/cad. October 28, 2018, bilateral MG 3d diag mammo w/cad [facility]. The breast tissue is heterogeneously dense. This may lower the sensitivity of mammography. There are benign appearing round calcifications bilaterally. Previous mammotome biopsy in the right breast. There is chronic nodularity bilaterally. There is no discrete abnormality. ASSESSMENT: Benign, BI-RAD 2 RECOMMENDATION: Routine screening mammogram of both breasts in 1 year.
--- NOTE | 2021-02-05 11:22 | P.PN ---
Progress Note - Text Progress Note Date: 02/05/21 OUTPATIENT FOLLOW-UP NOTE TEST(S)/RESULTS: Urinalysis done on 02/04/2021 is essentially negative METHOD OF NOTIFICATION: This message was given to the patient's who will tell his there is nothing to treat at this time. PATIENT COMMENTS: DIAGNOSIS: Negative urinalysis. DISCUSSION: PLAN: Await urine culture.
== END ==
LOC: WWCWWP 15:32
PROVIDERS: ATTEND Obstetrics & Gynecology
DX: Z01.419 Encounter for gynecological examination (general) (routine) without abnormal findings (principal); R39.15 Urgency of urination; R30.0 Dysuria; R35.0 Frequency of micturition; Z12.31 Encounter for screening mammogram for malignant neoplasm of breast; Z90.710 Acquired absence of both cervix and uterus; Z90.722 Acquired absence of ovaries, bilateral
CPT/HCPCS: 77063; 77067; 81003; 87086

== ENCOUNTER → 2022-03-24 | Outpatient (CLI) | payer BC ==
[2022-03-24 15:24] VITALS: BP 120/81; PULSE 72; RESP 17; TEMP 97.9
--- NOTE | 2022-03-24 16:35 | P.HPOB ---
History of Present Illness H&P Date: 03/24/22 Chief Complaint: The patient is here for her routine gynecologic exam and ma mmogram. This is a 61-year-old 013 with an LMP of 1999. The patient is status post COREY/BSO for benign reasons the patient has been experiencing some bladder pressure and urinary urgency. When she voids, she tends to dribble and only small amounts,. She denies dysuria. She is without gynecologic complaints. Review of Systems The patient has gained 4 pounds over the last year. She denies respiratory, cardiac, or G.I. problems. : See HPI. 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 History of Any Multi-Drug Resistant Organisms: None Reported Past Surgical History: Breast Surgery, Section, Cholecystectomy, Hysterectomy, Orthopedic Surgery Additional Past Surgical History / Comment(s): COREY/BSO in 1999. section 3. CYSTECTOMY FROM BREAST -NOT SURE WHICH SIDE, BILAT KNEE SCOPES, COLONOSCOPY 2015(next after 10yr). Past Anesthesia/Blood Transfusion Reactions: No Reported Reaction Past Psychological History: No Psychological Hx Reported Smoking Status: Never smoker Past Alcohol Use History: Rare (0-2 per year) Past Drug Use History: None Reported Additional History: She has been since 1979. She works at [email or web address] in [place]. - Past Family History Father Family Medical History: Myocardial Infarction ([place]) Mother Family Medical History: COPD Sister(s) Family Medical History: Hypertension Daughter(s) Family Medical History: Diabetes Mellitus Medications and Allergies Home Medications Medication Instructions Recorded Confirmed Type ALPRAZolam [Xanax] 0.5 mg PO DAILY PRN 07/13/18 03/24/22 History Zolpidem [Ambien] 10 mg PO HS 07/13/18 03/24/22 History Cranberry Fruit Extract [Cranberry] 200 mg PO DAILY 05/08/19 03/24/22 History Garlic 1 each PO DAILY 05/08/19 03/24/22 History HYDROcodone/APAP 5-325MG [[place] 1 tab PO Q6HR PRN 05/08/19 03/24/22 History 5-325] Hydroxychloroquine Sulfate 200 mg PO DAILY 05/08/19 03/24/22 History [Plaquenil] [place]-3 Fatty Acids/Fish Oil [Fish 1 each PO DAILY 05/08/19 03/24/22 History Oil 1,000 mg Softgel] Potassium Gluconate [Potassium 99 mg PO DAILY 05/08/19 03/24/22 History Gluconate ER] Prasterone (Dhea) [Dhea] 50 mg PO DAILY 05/08/19 03/24/22 History Thyroid,Pork [Nature-Throid] 32.5 mg PO DAILY 05/08/19 03/24/22 History Vitamin B Complex 1 each PO DAILY 05/08/19 03/24/22 History Allergies Allergy/AdvReac Type Severity Reaction Status Date / Time No Known Allergies Allergy Unverified 03/24/22 15:18 Exam Vital Signs Temp Pulse Resp BP Pulse Ox 03/24/22 15:21 97.9 F 72 17 120/81 95 Intake and Output 03/24/22 03/24/22 03/24/22 06:59 14:59 22:59 Other: Weight 81.193 kg Height 4 feet 11 inches, weight 179 pounds, BMI 36.2. This is a well-developed well-nourished white female who is alert and oriented times 3 in no acute distress. HEENT: Within normal limits. NECK: Supple without mass or thyromegaly. CHEST AND LUNGS: Clear to auscultation. HEART: Regular rate and rhythm. BREASTS: Are without mass or discharge. AXILLARY EXAM: Negative for adenopathy. BACK: Negative for CVA tenderness. ABDOMEN: Soft, nontender, without palpable masses. PELVIC EXAM: External genitalia appears normal with mild atrophy. Vagina appears normal with mild atrophy. There is no evidence of prolapse even with cough or Valsalva. Bimanual examination is negative for mass or tenderness. RECTAL EXAM: Rectovaginal exam is negative for mass or tenderness and is negative for occult blood. EXTREMITIES: Nontender. IMPRESSION: 1. 61-year-old menopausal female status post COREY/BSO for benign reasons with normal gynecologic exam. 2. Bladder pressure with urinary urgency and slow urinary stream. PLAN: 1. Pap smears have been discontinued. 2. Self breast awareness was discussed with the patient. We have also discussed symptoms associated with inflammatory breast cancer. 3. Screening mammogram will be done today. 4. Clean catch midstream urine specimen has been obtained for urinalysis and culture with sensitivity. 5. Osteoporosis prevention was discussed. I have stressed the importance of adequate calcium, vitamin D and regular exercise. Recommended amounts of c alcium and vitamin D were also discussed. She had a normal bone density test done in 2018. We will plan on doing another bone density test in 2022 at her next well woman examination. 6. She was advised to return in one year for her annual well woman exam.
[2022-03-24 22:58] LABS: Appearance,Urine Cloudy (Clear); Bilirubin,Urine Negative (Negative); Blood,Urine Negative (Negative); Color,Urine Yellow (Yellow); Ketones,Urine Trace mg/dL (Negative); Nitrite,Urine Negative (Negative); Specific Gravity,Urine 1.027 (1.001-1.030)
[2022-03-24 23:23] LABS: Bacteria,Urine None Seen /HPF (None Seen)
--- NOTE | 2022-03-25 08:53 | MM ---
Reason for Exam: Screening (asymptomatic). Last mammogram was performed 1 year(s) and 1 month(s) ago. Patient History: Menarche at age 10. First Full-Term at age 19. Left ovary removed at age 43. Right ovary removed at age 43. Hysterectomy at age 43. Postmenopausal. Estrogen, starting at age 49 for 6 years. Progesterone, starting at age 49 for 6 years. 09/09/2015, Benign Cyst Aspiration on the right side. Risk Values: Joan 5 year model risk: 1.5%. NCI Lifetime model risk: 6.8%. Prior Study Comparison: 10/28/2018 Bilateral Diagnostic Mammogram, [facility]. 11/14/2019 Bilateral Screening Mammogram, [facility]. 02/04/2021 Bilateral Screening Mammogram, [facility]. Tissue Density: There are scattered fibroglandular densities. Findings: Analyzed By CAD. Chronic nodularity is present bilaterally. Core marker is within the right breast. No suspicious groups of microcalcifications, spiculated or lobular masses, architectural distortion or other secondary signs of malignancy are mammographically apparent. Overall Assessment: Benign, BI-RAD 2 Management: Screening Mammogram of both breasts in 1 year. A negative mammogram report should not preclude additional follow up of suspicious palpable abnormalities. Patient should continue monthly self breast exam. A clinical breast exam by your physician is recommended on an annual basis and results should be correlated with mammographic findings. Electronically signed and approved by: Zhao Naylor D.O. Radiologis
--- NOTE | 2022-03-25 16:44 | P.PN ---
Progress Note - Text Progress Note Date: 03/25/22 Urinalysis done on 03/24/22 shows cloudy urine with trace leukocyte esterase. With her urinary urgency, I will treat her for suspected UTI cystitis. The prescription for Macrobid 100mg PO BID x7d was sent to [facility]. A message was left on her voicemail with the findings and to tell her the prescription will be sent in. Await culture results. She is to call if questions or problems.
== END | disposition home or self-care (01) ==
LOC: WWCWWP 15:06
PROVIDERS: ATTEND Obstetrics & Gynecology
DX: Z12.31 Encounter for screening mammogram for malignant neoplasm of breast (principal); R39.15 Urgency of urination
CPT/HCPCS: 77063; 77067; 81001; 87086

== ENCOUNTER → 2022-06-26 | Outpatient (CLI) | payer BC ==
--- NOTE | 2022-06-26 12:36 | CT ---
EXAMINATION TYPE: CT chest w con DATE OF EXAM: 06/26/2022 COMPARISON: none HISTORY: pre knee sx screening CT DLP: 425.7 mGycm Automated exposure control for dose reduction was used. CONTRAST: CT scan of the chest is performed with IV Contrast, patient injected with 70 mL of Isovue 300. FINDINGS: LUNGS: The lungs are grossly clear, there is no concerning parenchymal mass or nodule identified. T here is no pleural effusion or pneumothorax seen. The tracheobronchial tree is patent. MEDIASTINUM: There are no greater than 1 cm hilar or mediastinal lymph nodes. No pericardial effusi on is seen. Thoracic aorta is of normal caliber. The heart is not enlarged. UPPER ABDOMEN: No significant abnormality appreciated. OTHER: No additional significant abnormality is seen. IMPRESSION: No significant abnormality
== END | disposition home or self-care (01) ==
LOC: RADCTMAIN 11:23
PROVIDERS: ATTEND Family Medicine
DX: U09.9 Post COVID-19 condition, unspecified (principal); R07.9 Chest pain, unspecified
CPT/HCPCS: 71260; Q9967

== ENCOUNTER → 2023-04-21 | Outpatient (CLI) | payer BC ==
[2023-04-21 11:25] VITALS: BP 113/75; PULSE 74; RESP 16; TEMP 97.6
--- NOTE | 2023-04-21 12:02 | P.HPOB ---
History of Present Illness H&P Date: 04/21/23 Chief Complaint: The patient is here for her routine gynecologic exam and ma mmogram. This is a 62-year-old 013 with an LMP of 1999. The patient is status post COREY/BSO for benign reasons. She is without gynecologic complaints. Review of Systems She is lost about 5 pounds over the past year. She denies cardiac or GI problems. Respiratory: Occasional shortness of breath and just saw her PCP today for this. She was given a prescription for Symbicort for this. 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 History of Any Multi-Drug Resistant Organisms: None Reported Past Surgical History: Breast Surgery, Section, Cholecystectomy, Hysterectomy, Joint Replacement, Orthopedic Surgery Additional Past Surgical History / Comment(s): COREY/BSO in 1999. section 3. CYSTECTOMY FROM BREAST -NOT SURE WHICH SIDE, BILAT KNEE SCOPES, COLONOSCOPY 2015(next after 10yr). Left knee replacement surgery. Past Anesthesia/Blood Transfusion Reactions: No Reported Reaction Past Psychological History: No Psychological Hx Reported Smoking Status: Never smoker Past Alcohol Use History: Rare (0-2 per year.) Past Drug Use History: None Reported Additional History: She has been since 1979. She works at [employer] in [place]. - Past Family History Father Family Medical History: Myocardial Infarction ([place]) Mother Family Medical History: COPD Sister(s) Family Medical History: Hypertension Daughter(s) Family Medical History: Diabetes Mellitus Medications and Allergies Home Medications Medication Instructions Recorded Confirmed Type ALPRAZolam [Xanax] 0.5 mg PO DAILY PRN 07/13/18 04/21/23 History Zolpidem [Ambien] 10 mg PO HS 07/13/18 04/21/23 History Cranberry Fruit Extract [Cranberry] 200 mg PO DAILY 05/08/19 04/21/23 History Garlic 1 each PO DAILY 05/08/19 04/21/23 History HYDROcodone/APAP 5-325MG [[place] 1 tab PO Q6HR PRN 05/08/19 04/21/23 History 5-325] Hydroxychloroquine Sulfate 200 mg PO DAILY 05/08/19 04/21/23 History [Plaquenil] [place]-3 Fatty Acids/Fish Oil [Fish 1 each PO DAILY 05/08/19 04/21/23 History Oil 1,000 mg Softgel] Potassium Gluconate [Potassium 99 mg PO DAILY 05/08/19 04/21/23 History Gluconate ER] Prasterone (Dhea) [Dhea] 50 mg PO DAILY 05/08/19 04/21/23 History Vitamin B Complex 1 each PO DAILY 05/08/19 04/21/23 History Allergies Allergy/AdvReac Type Severity Reaction Status Date / Time No Known Allergies Allergy Unverified 04/21/23 11:21 Exam Vital Signs Temp Pulse Resp BP Pulse Ox 04/21/23 11:22 97.6 F 74 16 113/75 96 Intake and Output 04/20/23 04/21/23 04/21/23 22:59 06:59 14:59 Other: Weight 78.925 kg Height 4 feet 11 inches, weight 174 pounds, BMI 35. This is a well-developed well-nourished white female who is alert and oriented times 3 in no acute distress. HEENT: Within normal limits. NECK: Supple without mass or thyromegaly. CHEST AND LUNGS: Clear to auscultation. HEART: Regular rate and rhythm. BREASTS: Are without mass or discharge. AXILLARY EXAM: Negative for adenopathy. BACK: Negative for CVA tenderness. ABDOMEN: Soft, nontender, without palpable masses. PELVIC EXAM: External genitalia appears normal with mild atrophy. Vagina appears normal with mild atrophy. There is no evidence of prolapse. Bimanual examination is negative for mass or tenderness. RECTAL EXAM: Rectovaginal exam is negative for mass or tenderness and is negative for occult blood. EXTREMITIES: Nontender. IMPRESSION: 1. 62-year-old menopausal female status post COREY/BSO for benign reasons, with normal gynecologic exam. PLAN: 1. Pap smears have been discontinued. 2. Self breast awareness was discussed with the patient. We have also discussed symptoms associated with inflammatory breast cancer. 3. Screening mammogram will be done today. 4. Osteoporosis prevention was discussed. I have stressed the importance of adequate calcium, vitamin D and regular exercise. Recommended amounts of calcium and vitamin D were also discussed. Bone density testing will be done today. Her last one was normal in 2018. 5. She was advised to return in one year for her annual well woman exam.
--- NOTE | 2023-04-22 08:28 | MM ---
Reason for Exam: Screening (asymptomatic). Last mammogram was performed 1 year(s) and 1 month(s) ago. Patient History: Menarche at age 10. First Full-Term at age 19. Left ovary removed at age 43. Right ovary removed at age 43. Hysterectomy at age 43. Postmenopausal. Currently using Estrogen, beginning at age 49 for 6 years. Currently using Progesterone, beginning at age 49 for 6 years. 09/09/2015, Benign Cyst Aspiration on the right side. Risk Values: Joan 5 year model risk: 1.5%. NCI Lifetime model risk: 6.6%. Prior Study Comparison: 04/01/2016 Bilateral Diagnostic Mammogram, [facility]. 10/02/2016 Bilateral Diagnostic Mammogram, [facility]. 10/11/2017 Bilateral Diagnostic Mammogram, [facility]. 10/28/2018 Bilateral Diagnostic Mammogram, [facility]. 11/14/2019 Bilateral Screening Mammogram, [facility]. 02/04/2021 Bilateral Screening Mammogram, [facility]. 03/24/2022 Bilateral MG 3D screening mammo w/cad, [facility]. Tissue Density: There are scattered fibroglandular densities. Findings: Analyzed By CAD. There is no suspicious group of microcalcifications or new suspicious mass in either breast. Chronic nodularity within both breasts. Biopsy marker redemonstrated within the right breast. Overall Assessment: Benign, BI-RAD 2 Management: Screening Mammogram of both breasts in 1 year. A clinical breast exam by your physician is recommended on an annual basis and results should be correlated with mammographic findings. Note on Joan scores and lifetime risk: 1. A Joan score greater than 3% is considered moderate risk. If this is the case, consider specialist referral to assess eligibility for a risk reducing agent. If overall lifetime risk for the development of breast cancer is 20% or higher, the patient may qualify for future screening with alternating mammogram and breast MRI. Electronically signed and approved by: Kavon Houston D.O.
--- NOTE | 2023-04-22 09:34 | BD ---
EXAMINATION TYPE: Axial Bone Density DATE OF EXAM: 04/21/2023 CLINICAL HISTORY: 62 years old Female. ICD-10 CODE: Z78.0 Post menopausal without HRT Height: 59 Weight: 172.7 FRAX RISK QUESTIONS: Alcohol (3 or more units per day): no Family History (Parent hip fracture): no Glucocorticoids (More than 3mos): no History of Fracture in Adulthood: no Secondary Osteoporosis: 1. Type 1 Diabetes: no 2. Hyperthyroidism: no 3. Menopause before 45: yes 4. Malnutrition: no 5. Chronic liver disease: no Rheumatoid Arthritis: no Current Tobacco Use: no RISK FACTORS HISTORY OF: Hip Fracture (Right/Left): no Spine Fracture: no History of Wrist Fracture: no Surgery to Spine/Hip(right/left)/Wrist (right/left): no Family History of Osteoporosis: no Active: yes Diet low in dairy products/other sources of calcium: yes Postmenopausal woman: yes Take estrogen and/or progesterone medications: no Lost more than 2 inches in height since high school: no Frequent falls: no Poor Health: no Hyperparathyroidism: no Adrenal Insufficiency: no MEDICATIONS: Prednisone or other steroids: no Thyroid Medications: no Osteoporosis Medications: no Additional Medications: Xanax, Vit D, Magnesium, Fish Oil, Additional History: EXAM MEASUREMENTS: Bone mineral densitometry was performed using the [employer] System. Bone mineral density as measured about the Lumbar spine is: ----- L1-L4(G/cm2): 1.341 T Score Values are as follows: ----- L1: 0.9 ----- L2: 1.4 ----- L3: 1.8 ----- L4: 1.1 ----- L1-L4: 1.3 Z Score Values are as follows: ----- L1: 1.9 ----- L2: 2.4 ----- L3: 2.8 ----- L4: 2.1 ----- L1-L4: 2.4 Bone mineral density has: increased 1.6 % since study of: 05/30/2018 Bone mineral density about the R hip (g/cm2): 1.007 Bone mineral density about the L hip (g/cm2): 0.985 T Score values are as follows: -----R Neck: -1.4 -----L Neck: -1.7 -----R Total: 0.0 -----L Total: -0.2 Z Score values are as follows: -----R Neck: -0.3 -----L Neck: -0.6 -----R Total: 0.58 -----L Total: 0.6 Bone mineral density has: decreased -4.9 % since study of: 05/30/2018 FRAX%s: The graph provided illustrates a 8.7% chance for a major osteoporotic fx and a 1.0% chance fo r the hips probability for fx in 10 years time. IMPRESSION: Osteopenia (T Score between -2.5 and -1). There is slightly increased risk of fracture and the patient may be considered for treatment. Re-Screen 2-5 years. NOTE: T-SCORE=SD OF THE YOUNG ADULT MEAN.
== END ==
LOC: WWCWWP 11:11
PROVIDERS: ATTEND Obstetrics & Gynecology
DX: Z01.419 Encounter for gynecological examination (general) (routine) without abnormal findings (principal); Z12.31 Encounter for screening mammogram for malignant neoplasm of breast; Z78.0 Asymptomatic menopausal state; G47.30 Sleep apnea, unspecified; M79.7 Fibromyalgia; M85.89 Other specified disorders of bone density and structure, multiple sites; M19.90 Unspecified osteoarthritis, unspecified site; Z90.722 Acquired absence of ovaries, bilateral; Z90.49 Acquired absence of other specified parts of digestive tract; Z90.710 Acquired absence of both cervix and uterus; Z99.89 Dependence on other enabling machines and devices
CPT/HCPCS: 77063; 77067; 77080

== ENCOUNTER → 2023-09-07 | Outpatient (CLI) | payer BC ==
[2023-09-07 15:03] VITALS: BP 125/74; PULSE 75; RESP 18; TEMP 97.9
--- NOTE | 2023-09-07 16:11 | P.PN ---
Progress Note - Text Progress Note Date: 09/07/23 Chief Complaint: Vulvar and UTI symptoms which have gone on for nearly 2 months. HPI: This is a 63-year-old 013 with an LMP of 1999. She is status post COREY/BSO for benign reasons. She says she has had urinary tract infections over the years, but developed a UTI around the beginning of August and continues to have some issues related to this. In early August she developed urinary urgency, frequency and dysuria. She was treated by her PCP for a UTI with a 7 day antibiotic. She is uncertain as to what antibiotic this was. The UTI symptoms improved, but never went away. She also developed a thick white discharge with significant vulvar itching after the course of antibiotics and was treated with Diflucan 1 for a possible yeast infection. The Whitish discharge did improve, but she continues to have vulvar irritation, itching and soreness. She developed a right vulvar ulcer toward the end of August and this was very sore and painful. The ulcer went away but the vulva still feels irritated and sore in that area. Her urinary symptoms seemed to get worse and was then treated by her PCP with Bactrim on 09/02/2023. Prior to starting the Bactrim, urine was obtained from her PCP and she has not gotten results from her PCP. ROS: She denies fever. She denies respiratory, cardiac, or GI problems. PE: Blood pressure: 125/74, Height: 4 feet 11-1/2 inches, Weight:. 72 pounds, Temperature: 97.9, Pulse: 75. Pulse oximeter 98%. BMI 34.2. This is a well developed, well nourished, white female who is alert and orientedx3, in no acute distress. Abdomen: Soft, nontender, without palpable masses. External genitalia: There is mild generalized erythema with a small slightly redder area at approximately the 8 o'clock position of the vaginal opening just lateral of the right labia minora. This is not ulcerated, but the patient states this is where she noticed the small ulcer. This area is sensitive to the touch. There are no other focal lesions. Vagina: There is small amount of thin pate discharge without odor. Bimanual examination: There are no palpable adnexal masses or tenderness. In the area of the bladder she is minimally tender. Vaginal cuff is normal in appearance and there is no evidence of prolapse. Impression: 1. 63-year-old menopausal female status post COREY/BSO who is currently being treated for a recurring urinary urinary tract infection on her second course of antibiotics over the past month. Urinalysis and culture are pending and was done by her primary care physician. 2. Persistent vulvar irritation. Possible Tomasa vaginitis, bacterial vaginosis, residual symptoms following treated Tomasa vaginitis, or nonspecific vulvitis. 3. Right vulvar ulcer per the patient which is no longer ulcerated, but there is an area of greater erythema where she felt the ulceration was. Differential diagnosis will include genital herpes lesion which is healing, scratched area that led to slight ulceration which could've been from a Tomasa infection or nonspecific vulvitis. 4. Slight vaginal discharge which could be a physiologic discharge as well as possible Tomasa vaginitis or bacterial vaginosis. 5. Patient is again being treated for a UTI by her PCP and this is the second course of antibiotics within 6 weeks. Plan: 1. Affirm vaginitis panel was obtained from the vagina. 2. HSV testing was obtained from the right vulvar lesion which is no longer ulcerated. She understands this may be limited test in that an active herpes lesion may not test positive after the skin has scarred over. Positive test would be indicative of genital herpes. 3. Urine will not be sent for testing since she had urine testing done through her PCP prior to the second course of antibiotics around 09/02/2023, with results pending. The patient was advised to contact her PCP tomorrow to get these results. 4. Kenalog 0.1% cream twice a day as needed for vulvar itching or irritation. She will use it sparingly over the area where she believes the ulcer was noted since this may be very sensitive. 5. Diflucan 150 mg by mouth once when she has typical yeast infection symptoms and 3 refills will be given to the patient. Electronic prescription for the Kenalog cream and Diflucan will be sent to my her pharmacy in [place]. 6. She will return if symptoms are not improving. If they are improving she will return in April for her annual well woman examination. Time spent with the patient: 25 minutes
--- NOTE | 2023-09-08 19:28 | P.PN ---
Progress Note - Text Progress Note Date: 09/08/23 Affirm vaginitis panel done on 09/07/23 was negative for Tomasa, Gardnerella, and Trichomonas. The patient was notified by phone on 09/08/23. She will use the Kenalog cream as directed. Await HSV test results.
== END ==
LOC: WWCWWP 14:42
PROVIDERS: ATTEND Obstetrics & Gynecology
DX: A60.09 Herpesviral infection of other urogenital tract (principal); B37.9 Candidiasis, unspecified; N76.6 Ulceration of vulva; Z87.440 Personal history of urinary (tract) infections; Z78.0 Asymptomatic menopausal state; Z90.710 Acquired absence of both cervix and uterus; Z90.722 Acquired absence of ovaries, bilateral

== ENCOUNTER → 2024-04-25 | Outpatient (CLI) | payer BC ==
[2024-04-25 14:58] VITALS: BP 120/73; PULSE 83; RESP 16; TEMP 98.2
--- NOTE | 2024-04-26 14:45 | P.HPOB ---
History of Present Illness H&P Date: 04/25/24 Chief Complaint: The patient is here for her routine gynecologic exam and ma mmogram. This is a 63-year-old -0-1-3 with an LMP of 1999. The patient is status post COREY/BSO for benign reasons. The patient states she has been having chronic right vulvar irritation and discomfort for about 2 years. She was last seen in September after she was treated for a UTI. Vulvar irritation became worse and her PCP treated her for a yeast infection. Since it was not improving much, I had seen her in September and prescribed Kenalog cream to be used on the vulva as needed. Last month she was again treated for UTI with 2 different antibiotics. The right labia has been feeling irritated with itching, burning and stinging sensations. She seems to think eating acidic food seems to make it worse and is wondering if acidic urine touching the area is making it worse. She denies any significant vaginal discharge. She denies significant urinary leakage. She is sexually active and she states that can feel uncomfortable after sexual activity for couple of days. She denies any postmenopausal bleeding. Review of Systems Her weight has been stable. She denies respiratory or cardiac problems. GI: She has been experiencing some problems with hemorrhoids and can have some blood after bowel movements at times. 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 PAST [employer] HISTORY: She has no history of STDs. History of Any Multi-Drug Resistant Organisms: None Reported Past Surgical History: Breast Surgery, Section, Cholecystectomy, Hysterectomy, Joint Replacement, Orthopedic Surgery Additional Past Surgical History / Comment(s): COREY/BSO in 1999. section 3. CYSTECTOMY FROM BREAST -NOT SURE WHICH SIDE, BILAT KNEE SCOPES, COLONOSCOPY 2016(next after 10yr). Bilateral knee replacement surgery. Past Anesthesia/Blood Transfusion Reactions: No Reported Reaction Past Psychological History: No Psychological Hx Reported Smoking Status: Never smoker Past Alcohol Use History: Rare (0-2 drinks per year.) Past Drug Use History: None Reported Additional History: She has been since 1979. - Past Family History Father Family Medical History: Myocardial Infarction (ID) Mother Family Medical History: COPD Sister(s) Family Medical History: Hypertension Daughter(s) Family Medical History: Diabetes Mellitus Medications and Allergies Home Medications Medication Instructions Recorded Confirmed Type ALPRAZolam [Xanax] 0.5 mg PO DAILY PRN 07/13/18 04/25/24 History Zolpidem [Ambien] 10 mg PO HS 07/13/18 04/25/24 History Cranberry Fruit Extract [Cranberry] 200 mg PO DAILY 05/08/19 04/25/24 History Garlic 1 each PO DAILY 05/08/19 04/25/24 History HYDROcodone/APAP 5-325MG [[place] 1 tab PO Q6HR PRN 05/08/19 04/25/24 History 5-325] Hydroxychloroquine Sulfate 200 mg PO DAILY 05/08/19 04/25/24 History [Plaquenil] [place]-3 Fatty Acids/Fish Oil [Fish 1 each PO DAILY 05/08/19 04/25/24 History Oil 1,000 mg Softgel] Potassium Gluconate [Potassium 99 mg PO DAILY 05/08/19 04/25/24 History Gluconate ER] Prasterone (Dhea) [Dhea] 50 mg PO DAILY 05/08/19 04/25/24 History Vitamin B Complex 1 each PO DAILY 05/08/19 04/25/24 History Fluconazole [Diflucan] 150 mg PO ONCE #1 tab 09/07/23 04/25/24 Rx Estrogens, Conjugated Cream 1 gram VAGINAL DIRECTED #30 gram 04/26/24 Rx [Premarin Vaginal Cream] Triamcinolone 0.1% Cream [Kenalog 1 applicatio TOPICAL BID PRN #30 gm 04/26/24 Rx 0.1% Cream] Allergies Allergy/AdvReac Type Severity Reaction Status Date / Time No Known Allergies Allergy Unverified 04/25/24 14:56 Exam Vital Signs Temp Pulse Resp BP Pulse Ox 04/25/24 14:56 98.2 F 83 16 120/73 98 Height 4 feet 11 inches, weight 174 pounds, BMI 35.1 This is a well-developed well-nourished white female who is alert and oriented times 3 in no acute distress. HEENT: Within normal limits. NECK: Supple without mass or thyromegaly. CHEST AND LUNGS: Clear to auscultation. HEART: Regular rate and rhythm. BREASTS: Are without mass or discharge. AXILLARY EXAM: Negative for adenopathy. BACK: Negative for CVA tenderness. ABDOMEN: Soft, nontender, without palpable masses. PELVIC EXAM: External genitalia reveals mild atrophy with mild right outer vulvar erythema. There is no excoriation or ulceration. Vagina appears normal with a small amount of whitish-cream like discharge. There is no odor noted. There is no evidence of prolapse. Bimanual examination is negative for mass or tenderness. RECTAL EXAM: Rectovaginal exam is negative for mass or tenderness and is positive for occult blood. The patient says she has had problems with her hemorrhoids with intermittent blood after bowel movements. EXTREMITIES: Nontender. IMPRESSION: 1. 63-year-old menopausal female status post COREY/BSO for benign reasons, with chronic right vulvar irritation with slight whitish-cream like discharge. Differential diagnosis will include Tomasa vaginitis, bacterial vaginosis, vulvitis related to atrophy, nonspecific neuropathic vulvodynia, lichen sclerosis, or other chronic vulvitis. 2. History of osteopenia. 3. Heme positive stools. The patient has had issues with hemorrhoids and blood after bowel movements that may be related to the hemorrhoids. PLAN: 1. Pap smears have been discontinued. 2. Self breast awareness was discussed with the patient. We have also discussed symptoms associated with inflammatory breast cancer. 3. Screening mammogram was done today. 4. Affirm vaginitis panel was obtained from the vagina. 5. Trial of estradiol vaginal cream 1 g into the vagina 2 times weekly. We will see if this helps with her vaginal discomfort with sexual intercourse as well as possibly helping with her chronic vulvitis. 6. She will resume using Kenalog 0.1% cream. Her 1 full week she will use this twice daily, for the second week, she will decrease to nightly and will use a protective layer such as petroleum jelly each morning. After these 2 weeks she can decrease to petroleum jelly once a day and Kenalog cream as needed. After trying this regimen with Kenalog cream and estradiol vaginal cream, she will see if it improves and if it is not improving in approximately 2 months, she was instructed to make an appointment to be seen for possible vulvar biopsy. Electronic prescription for estradiol vaginal cream 1 g inserted into the vagina 2 times weekly as well as Kenalog 0.1% cream as above, will be sent to [facility] pharmacy in [place]. 7. I recommended that she look into having her colonoscopy since it has been more than 7 years since her last one, as well as having issues with blood per rectum and positive Hemoccult testing today. She will try to arrange this thr ough her PCP.
--- NOTE | 2024-04-27 09:59 | MM ---
Reason for Exam: Screening (asymptomatic). Last screening mammogram was performed 12 month(s) ago. Patient History: Menarche at age 10. First Full-Term at age 19. Left ovary removed at age 43. Right ovary removed at age 43. Hysterectomy at age 43. Postmenopausal. Currently using Estrogen, beginning at age 49 for 6 years. Currently using Progesterone, beginning at age 49 for 6 years. 09/09/2015, Benign Cyst Aspiration on the right side. Risk Values: Joan 5 year model risk: 1.6%. NCI Lifetime model risk: 6.4%. Prior Study Comparison: 02/04/2021 Bilateral Screening Mammogram, [facility]. 03/24/2022 Bilateral MG 3D screening mammo w/cad, [facility]. 04/21/2023 Bilateral MG 3D screening mammo w/cad, [facility]. Tissue Density: There are scattered areas of fibroglandular density. Findings: Analyzed By CAD. There is no suspicious group of microcalcifications or new suspicious mass in either breast. Overall Assessment: Negative, BI-RAD 1 Management: Screening Mammogram of both breasts in 1 year. . Patient should continue monthly self-breast exams. A clinical breast exam by your physician is recommended on an annual basis. This exam should not preclude additional follow-up of suspicious palpable abnormalities. Note on Joan scores and lifetime risk: 1. A Joan score greater than 3% is considered moderate risk. If this is the case, consider specialist referral to assess eligibility for a risk reducing agent. 2. If overall lifetime risk for the development of breast cancer is 20% or higher, the patient may qualify for future screening with alternating mammogram and breast MRI. Electronically signed and approved by: Vazquez Vaca M.D. Radiologis
--- NOTE | 2024-05-02 10:10 | P.PN ---
Progress Note - Text Progress Note Date: 05/02/24 OUTPATIENT FOLLOW-UP NOTE Late entry. TEST(S)/RESULTS: Affirm vaginitis panel done on 04/25/2024 was negative for Tomasa, Gardnerella, and trichomonas. METHOD OF NOTIFICATION: The patient was notified by phone on 04/26/2024. PATIENT COMMENTS: The patient had called to indicate that the prescriptions for the triamcinolone cream and estradiol vaginal cream were not received by her pharmacy. DIAGNOSIS: Negative affirm vaginitis panel. DISCUSSION: After it was discovered that the prescriptions were not sent in to her pharmacy, the electronic prescriptions were sent in on 04/26/2024. PLAN: As above. The triamcinolone cream and the estrogen cream will be used as directed.
== END ==
LOC: WWCWWP 14:37
PROVIDERS: ATTEND Obstetrics & Gynecology
DX: Z12.31 Encounter for screening mammogram for malignant neoplasm of breast (principal); R92.323 Mammographic fibroglandular density, bilateral breasts; N76.89 Other specified inflammation of vagina and vulva; M85.80 Other specified disorders of bone density and structure, unspecified site; B37.32 Chronic candidiasis of vulva and vagina; R19.5 Other fecal abnormalities; Z90.710 Acquired absence of both cervix and uterus; Z90.722 Acquired absence of ovaries, bilateral; Z87.19 Personal history of other diseases of the digestive system; Z87.440 Personal history of urinary (tract) infections
CPT/HCPCS: 77063; 77067

== ENCOUNTER → 2024-07-11 | Outpatient (CLI) | payer MEDICARE ==
[2024-07-11 15:02] VITALS: BP 123/75; PULSE 75; RESP 16; TEMP 98.1
--- NOTE | 2024-07-11 17:17 | P.PN ---
Progress Note - Text Progress Note Date: 07/11/24 Chief Complaint: Right vulvar irritation much worse 2 weeks ago HPI: This is a 64-year-old -0-1-3 with an LMP of 1999. She is status post COREY/BSO for benign reasons. She states she has had chronic right vulvar irritation for about 2 and half years. The irritation seems to get worse at t imes. About 2 weeks ago it became much worse and felt like an ulcer. It seemed that anything that touches the area or rubbed up against it seemed to make it feel worse. She has tried the triamcinolone cream as well as estrogen cream without much improvement. It did gradually improve over the 2 weeks and now is not as bad. She states eating acidic food seems to make it worse. She has a history of oral lichens planus with oral ulcer like lesions that flareup at times of stress. She thinks the vulvar area seems to flareup around times of stress and also when she has flareups of the oral lichen planus. She denies vaginal discharge, vaginal odor or vaginal bleeding. ROS: Otherwise unremarkable. PE: Blood pressure: 123/75, Height: 4 feet 11 inches, Weight: 174 pounds, Temperature: 98.1, Pulse: 75. Pulse oximeter 97%. This is a well developed, well nourished, white female who is alert and orientedx3, in no acute distress. External genitalia there is mild to moderate atrophy. Left labia minora is somewhat fused to the labia majora secondary to atrophy. Right labia minora is more prominent than the left side. Just lateral to the left labia minora there is a small ulcerated area measuring approximately 4 x 5 mm. There is mild generalized erythema of the labia majora bilaterally. It is slightly more erythematous around the small ulcerated lesion. Lesion is not raised and is not firm. Not irregular and seems oval-shaped. It is slightly sensitive in this area when touched. There is no pallor to the area. Impression: 1. 64-year-old menopausal female status post COREY/BSO for benign reasons, with chronic right vulvar irritation which has flareups. Currently there is a small ulcerated area in the right labia majora. Differential diagnosis will include genital HSV, lichens planus, a scratched area, and nonspecific vulvitis. Plan: 1. HSV testing was obtained from this lesion. She understands the limitations of HSV testing. She understands that a positive test would mean this is likely an HSV lesion, however a negative test does not rule out genital HSV since it could be a an HSV lesion that has scabbed over without significant viral shedding. I will hide trial of Valtrex 500 mg p.o. twice daily x 3 days when she does have flareups of the symptoms. She can continue to use the triamcinolone cream and estrogen cream as directed. She will also use Aquaphor as a protective barrier. The prescription will be sent to [facility] in [place]. 2. If HSV testing is negative we can also consider Temovate ointment as needed. 3. If she continues to have no significant improvement, we will plan on biopsying this area. If after 1 month she has not gotten much improvement, she will call to schedule an appointment for a vulvar biopsy. Time spent with the patient: 25 minutes
== END ==
LOC: WWCWWP 14:49
PROVIDERS: ATTEND Obstetrics & Gynecology